=== PATIENT | female | born 1995 | race Hispanic/Latino ===

== ENCOUNTER 2021-05-02 09:12 | Outpatient (CLI) | payer SELFPAY ==
[2021-05-02 17:15] LABS: SARS-CoV-2 PCR by NAA Not Detected (NotDetected)
== END 2021-05-02 09:13 | disposition home or self-care (01) ==
LOC: CSHLAB 09:12
PROVIDERS: ATTEND Obstetrics & Gynecology
DX: Z20.822 Contact with and (suspected) exposure to COVID-19 (principal)
CPT/HCPCS: U0003; U0005

== ENCOUNTER 2021-08-08 13:51 | Outpatient (CLI) | payer OTHER ==
[2021-08-09 11:54] LABS: SARS-CoV-2 PCR by NAA Not Detected (NotDetected)
== END 2021-08-08 13:52 | disposition home or self-care (01) ==
LOC: CSHLAB 13:51
PROVIDERS: ATTEND Obstetrics & Gynecology
DX: Z01.812 Encounter for preprocedural laboratory examination (principal); Z20.822 Contact with and (suspected) exposure to COVID-19
CPT/HCPCS: U0003; U0005

== ENCOUNTER 2021-08-09 19:43 | Day surgery (SDC) | payer OTHER ==
[2021-08-09] MEDS ORDERED: hydrALAZINE 20 MG/ML VIAL SLOW IVP PRN (21:12)
== END 2021-08-09 21:40 | disposition home or self-care (01) ==
LOC: CSHLD/OP 19:43
PROVIDERS: ATTEND Obstetrics & Gynecology
DX: O47.1 False labor at or after 37 completed weeks of gestation (principal); O99.013 Anemia complicating pregnancy, third trimester; Z3A.39 39 weeks gestation of pregnancy; Z79.899 Other long term (current) drug therapy
CPT/HCPCS: 99282

== ENCOUNTER 2021-08-10 10:01 | Inpatient (IN) | payer MEDICAID, OTHER, SELFPAY ==
[~2021-08-10 10:01] MED LIST: Bupivacaine 0.25% HCL 30 ML VIAL ONE; Bupivacaine PF 0.5% 30 ML VIAL ONE
[2021-08-10] MEDS ORDERED: hydrALAZINE 20 MG/ML VIAL SLOW IVP PRN ×2 (10:20→14:22)
[2021-08-10] MEDS ORDERED: Morphine 10 MG/ML VIAL IM SCH (11:00)
[2021-08-10] MEDS: Lactated Ringer's 1,000 ML IV SCH ×2 (14:17→18:03)
[2021-08-10] MEDS ORDERED: Ibuprofen 800 MG TAB PO PRN (14:22)
[2021-08-10] MEDS ORDERED: Methylergonovine 0.2 MG/ML VIAL IM PRN (14:22)
[2021-08-10] MEDS ORDERED: Carboprost 250 MCG/ML AMP IM PRN (14:22)
[2021-08-10] MEDS ORDERED: Promethazine HCl 25 MG/ML VIAL IM PRN ×2 (14:22→18:13)
[2021-08-10] MEDS ORDERED: Misoprostol 200 MCG TAB PR PRN (14:22)
[2021-08-10] MEDS ORDERED: Lidocaine 1% (PF) 30 ML VIAL SC PRN (14:22)
[2021-08-10] MEDS ORDERED: Ondansetron PF 4 MG/2 ML Vial IVP PRN ×2 (14:22→18:13)
[2021-08-10 14:30] VITALS: BMI 35.2
[2021-08-10] MEDS ORDERED: NS w/ Oxytocin 30 units 500 ML IVPB SCH (14:30)
[2021-08-10] MEDS ORDERED: NS w/ Oxytocin 30 units 500 ML IV SCH (14:30)
[2021-08-10 14:56] LABS: Hemoglobin 15.5 g/dL (12.0-15.5); Mean Corpuscular HGB CONC 33.3 g/dL (32.0-36.0); Mean Corpuscular Hemoglobin 28.7 pg (27.0-33.0); Mean Corpuscular Volume 86.1 fl (81.6-98.3); Mean Platelet Volume 10.8 fl (7.4-10.4); Platelet Count 214 10x3/uL (150-450); RBC Distribution Width 18.3 % (11.5-14.5); Red Blood Cell (RBC) Count 5.41 10x6/uL (3.90-5.03); White Blood Cell (WBC) Count 9.5 10x3/uL (3.5-10.5)
[2021-08-10] MEDS ORDERED: Fentanyl 2 mcg/Bup 0.1% Cadd 100 ML ONE (15:17)
[2021-08-10 15:31] LABS: HIV (1/2) Antibody/Antigen Non-Reactive (NonReactive); HIV 1/2 INDEX 0.06 S/CO (<1.00); Syphilis Antibody Nonreactive (Nonreactive); Syphilis Antibody Index 0.05 S/CO (<1.00 Non-Reactive)
[2021-08-10 15:37] LABS: Hep B Surf Ag Non-Reactive S/CO (NonReactive)
[2021-08-10 15:38] LABS: HBSAg Index 0.16 S/CO (0-0.99)
[2021-08-10] MEDS ORDERED: Fentanyl 100 MCG/2 ML VIAL ONE (17:21)
[2021-08-10] MEDS ORDERED: Hydrocerin (Eucerin) Cream 120 gm Jar TOP PRN (18:13)
[2021-08-10] MEDS ORDERED: Acetaminophen 325 MG TAB PO PRN (18:13)
[2021-08-10] MEDS ORDERED: ePHEDrine Sulfate 50 MG/10 ML VIAL SLOW IVP PRN (18:13)
[2021-08-10] MEDS ORDERED: Naloxone HCl 0.4 mg/ml Vial IVP PRN ×2 (18:13)
[2021-08-10] MEDS ORDERED: diphenhydrAMINE 50 MG/ML VIAL IVP PRN (18:13)
[2021-08-10] MEDS ORDERED: Communication Order-Pharmacy FS SCH (18:15)
[2021-08-10] MEDS ORDERED: Fentanyl 2 mcg/Bupivacaine 0.1% Cassette 100 ML EPIDURAL SCH (18:15)
[2021-08-10] MEDS ORDERED: Lactated Ringer's 1,000 ML IV PRN (18:21)
[2021-08-11] MEDS: NS w/ Oxytocin 30 units 500 ML IV SCH ×2 (03:55→06:35)
[2021-08-11] MEDS ORDERED: hydrALAZINE 20 MG/ML VIAL SLOW IVP PRN (08:36)
[2021-08-11] MEDS ORDERED: Bisacodyl 10 MG SUPP PR PRN (08:36)
[2021-08-11] MEDS ORDERED: Boostrix 0.5 ML (Tdap) VIAL IM ONE (08:36)
[2021-08-11] MEDS ORDERED: Preparation H Ointment 28 GM TUBE PR PRN (08:36)
[2021-08-11] MEDS ORDERED: Lanolin Ointment 7 GM TUBE TOP PRN (08:36)
[2021-08-11] MEDS ORDERED: Promethazine HCl 25 MG/ML VIAL IM PRN (08:36)
[2021-08-11] MEDS ORDERED: Ondansetron PF 4 MG/2 ML Vial IVP PRN (08:36)
[2021-08-11] MEDS ORDERED: Benzocaine-Menthol 82.5 ML CAN TOP PRN (08:36)
[2021-08-11] MEDS ORDERED: diphenhydrAMINE 25 MG CAP PO PRN (08:36)
[2021-08-11] MEDS: Lactated Ringer's 1,000 ML IV SCH (09:25)
[2021-08-11] MEDS: Docusate Calcium (SURFAK) 240 MG CAP PO SCH (10:14)
[2021-08-11] MEDS: Prenatal Vitamin 1 TAB PO SCH (10:14)
[2021-08-11] MEDS: Ibuprofen 800 MG TAB PO SCH (14:22)
[2021-08-11] MEDS: Ferrous Sulfate 325 MG TAB PO SCH (16:31)
[2021-08-12] MEDS: Docusate Calcium (SURFAK) 240 MG CAP PO SCH ×3 (06:42→21:06)
[2021-08-12] MEDS: Ibuprofen 800 MG TAB PO SCH ×4 (06:42→21:06)
[2021-08-12] MEDS: Prenatal Vitamin 1 TAB PO SCH (08:30)
[2021-08-12] MEDS: Ferrous Sulfate 325 MG TAB PO SCH ×2 (08:31→15:57)
[2021-08-12] MEDS: Milk Of Magnesia 30 ML UDCUP PO PRN (10:49)
[2021-08-13] MEDS: Ibuprofen 800 MG TAB PO SCH (05:35)
[2021-08-13 07:45] VITALS: BP 117/70; TEMP 98.9
[2021-08-13] MEDS: Ferrous Sulfate 325 MG TAB PO SCH (08:09)
[2021-08-13] MEDS: Docusate Calcium (SURFAK) 240 MG CAP PO SCH (08:10)
[2021-08-13] MEDS: Prenatal Vitamin 1 TAB PO SCH (08:10)
[2021-08-13] MEDS: Milk Of Magnesia 30 ML UDCUP PO PRN (10:50)
== END 2021-08-13 13:50 | disposition home or self-care (01) | DRG 768 ==
LOC: CSHLD/OP 10:01 → CSHLD 14:20 → CSHPP 08-11 08:55
PROVIDERS: ADMIT Obstetrics & Gynecology; ATTEND Obstetrics & Gynecology
PROC: 10E0XZZ Delivery of Products of Conception, External Approach (ICD-10-PCS; principal; 2021-08-11)
PROC: 0DQR0ZZ Repair Anal Sphincter, Open Approach (ICD-10-PCS; 2021-08-11)
PROC: 10907ZC Drainage of Amniotic Fluid, Therapeutic from Products of Conception, Via Natural or Artificial Opening (ICD-10-PCS; 2021-08-11)
DX: O76 Abnormality in fetal heart rate and rhythm complicating labor and delivery (principal); Z37.0 Single live birth; O70.20 Third degree perineal laceration during delivery, unspecified; Z3A.39 39 weeks gestation of pregnancy; O99.02 Anemia complicating childbirth; D64.9 Anemia, unspecified
CPT/HCPCS: 36415; 51702; 85027; 86780; 86850; 86900; 86901; 87340; 87389; 99285; J2270; J2590; J7120; S0020

== ENCOUNTER 2023-12-01 18:00 | Inpatient (IN) | payer MEDICAID, OTHER ==
[~2023-12-01 18:00] MED LIST changes: -Bupivacaine PF 0.5% 30 ML VIAL ONE
[2023-12-01] MEDS ORDERED: hydrALAZINE 20 MG/ML VIAL SLOW IVP PRN (18:04)
[2023-12-01] MEDS ORDERED: Misoprostol 200 MCG TAB PR PRN (18:04)
[2023-12-01] MEDS ORDERED: Carboprost 250 MCG/ML AMP IM PRN (18:04)
[2023-12-01] MEDS ORDERED: Ondansetron PF 4 MG/2 ML Vial IVP PRN (18:04)
[2023-12-01] MEDS ORDERED: Lidocaine 1% (PF) 30 ML VIAL SC PRN (18:04)
[2023-12-01] MEDS ORDERED: Methylergonovine 0.2 MG/ML VIAL IM PRN (18:04)
[2023-12-01] MEDS ORDERED: fentaNYL 50 mcg/mL 1 mL Vial SLOW IVP PRN (18:04)
[2023-12-01] MEDS ORDERED: Acetaminophen 500 MG TAB PO PRN (18:04)
[2023-12-01] MEDS ORDERED: Tranexamic Acid 1,000 MG/10 ML VIAL IVP PRN (18:04)
[2023-12-01] MEDS ORDERED: Ibuprofen 800 MG TAB PO PRN (18:04)
[2023-12-01] MEDS ORDERED: Diphenoxylate HCl/Atropine Tablet PO PRN (18:04)
[2023-12-01] MEDS ORDERED: Promethazine HCl 25 MG/ML VIAL IM PRN (18:04)
[2023-12-01] MEDS ORDERED: Oxytocin 30 units/NS 500 ML 500 ML IV SCH (18:15)
[2023-12-01] MEDS: Lactated Ringer's 1,000 ML IV SCH (22:20)
[2023-12-01 22:51] VITALS: BMI 34.4
[2023-12-01 22:59] LABS: Hematocrit 36.9 % (34.9-44.5); Mean Corpuscular HGB CONC 32.5 g/dL (32.0-36.0); Mean Corpuscular Hemoglobin 25.4 pg (27.0-33.0); Mean Corpuscular Volume 78.2 fl (81.6-98.3); Mean Platelet Volume 10.5 fl (7.4-10.4); Platelet Count 304 10x3/uL (150-450); RBC Distribution Width 20.8 % (11.5-14.5); Red Blood Cell (RBC) Count 4.72 10x6/uL (3.90-5.03); White Blood Cell (WBC) Count 9.8 10x3/uL (3.5-10.5)
[2023-12-01] MEDS: Misoprostol 100 MCG TAB VAG SCH (23:05)
[2023-12-01 23:34] LABS: HBSAg Index 0.22 S/CO (0-0.99); Hep B Surf Ag - L&D Non-Reactive S/CO (NonReactive); Syphilis Antibody Nonreactive (Nonreactive); Syphilis Antibody Index 0.07 S/CO (<1.00 Non-Reactive)
[2023-12-02] MEDS: fentaNYL/Ropivacaine Epidural 100 ML ONE (14:35)
[2023-12-02] MEDS ORDERED: Naloxone HCl 0.4 mg/ml Vial IVP PRN ×2 (14:51)
[2023-12-02] MEDS ORDERED: Lactated Ringer's 500 ML IV PRN (14:51)
[2023-12-02] MEDS ORDERED: ePHEDrine Sulfate 50 MG/10 ML VIAL SLOW IVP PRN (14:51)
[2023-12-02] MEDS ORDERED: Moisturizing Cream (Eucerin) 113 GM JAR TOP PRN (14:51)
[2023-12-02] MEDS ORDERED: Ondansetron PF 4 MG/2 ML Vial IVP PRN ×2 (14:51→20:42)
[2023-12-02] MEDS ORDERED: Promethazine HCl 25 MG/ML VIAL IM PRN ×2 (14:51→20:42)
[2023-12-02] MEDS ORDERED: diphenhydrAMINE 50 MG/ML VIAL IVP PRN (14:51)
[2023-12-02] MEDS ORDERED: fentaNYL 2 mcg/Ropivacaine 0.2% Epidural 100 ML CADD EPIDURAL SCH (15:00)
[2023-12-02] MEDS ORDERED: Communication Order-Pharmacy FS SCH (15:00)
[2023-12-02] MEDS: Oxytocin 30 units/NS 500 ML 500 ML IV SCH (17:15)
[2023-12-02] MEDS ORDERED: diphenhydrAMINE 25 MG CAP PO PRN (20:42)
[2023-12-02] MEDS ORDERED: Benzocaine-Menthol 82.5 ML CAN TOP PRN (20:42)
[2023-12-02] MEDS ORDERED: Lanolin Ointment 7 GM TUBE TOP PRN (20:42)
[2023-12-02] MEDS ORDERED: Milk Of Magnesia 30 ML UDCUP PO PRN (20:42)
[2023-12-02] MEDS ORDERED: Boostrix 0.5 ML (Tdap) VIAL (>/=7 yrs of age) IM ONE (20:42)
[2023-12-02] MEDS ORDERED: hydrALAZINE 20 MG/ML VIAL SLOW IVP PRN (20:42)
[2023-12-02] MEDS ORDERED: Preparation H Ointment 28 GM TUBE PR PRN (20:42)
[2023-12-02] MEDS ORDERED: Bisacodyl 10 MG SUPP PR PRN (20:42)
[2023-12-02] MEDS ORDERED: Acetaminophen 325 MG TAB PO PRN (20:57)
[2023-12-02] MEDS ORDERED: Oxytocin 30 units/NS 500 ML 500 ML IV SCH (21:00)
[2023-12-02] MEDS: Ibuprofen 800 MG TAB PO SCH (21:50)
[2023-12-02] MEDS: Docusate 100 MG CAP PO SCH (21:50)
[2023-12-03] MEDS: Ferrous Sulfate 325 MG TAB PO SCH (07:22)
[2023-12-03] MEDS: Prenatal Vitamin 1 TAB PO SCH (08:22)
[2023-12-03] MEDS: Acetaminophen 325 MG TAB PO PRN (08:22)
[2023-12-03 11:43] VITALS: BP 100/60; TEMP 98.9
== END 2023-12-03 18:30 | disposition home or self-care (01) | DRG 807 ==
LOC: CSHLD 21:41 → CSHPP 12-02 20:32
PROVIDERS: ADMIT Family Medicine; ATTEND Family Medicine
PROC: 10E0XZZ Delivery of Products of Conception, External Approach (ICD-10-PCS; principal; 2023-12-02)
PROC: 0HQ9XZZ Repair Perineum Skin, External Approach (ICD-10-PCS; 2023-12-02)
PROC: 3E033VJ Introduction of Other Hormone into Peripheral Vein, Percutaneous Approach (ICD-10-PCS; 2023-12-02)
DX: O48.0 Post-term pregnancy (principal); Z37.0 Single live birth; Z3A.40 40 weeks gestation of pregnancy; O69.81X0 Labor and delivery complicated by cord around neck, without compression, not applicable or unspecified; O70.0 First degree perineal laceration during delivery
CPT/HCPCS: 85027; 86780; 86850; 86900; 86901; 87340; J0665; J2590; J7120

== ENCOUNTER 2025-08-20 08:28 | Inpatient (IN) | payer OTHER ==
[2025-08-21 20:02] VITALS: BMI 38.5
[2025-08-21] MEDS ORDERED: Ibuprofen 800 MG TAB PO PRN (21:32)
[2025-08-21] MEDS ORDERED: Methylergonovine 0.2 MG/ML VIAL IM PRN (21:32)
[2025-08-21] MEDS ORDERED: Tranexamic Acid 1,000 MG/10 ML VIAL IVP PRN (21:32)
[2025-08-21] MEDS ORDERED: Carboprost 250 MCG/ML AMP IM PRN (21:32)
[2025-08-21] MEDS ORDERED: Lidocaine 1% (PF) 30 ML VIAL SC PRN (21:32)
[2025-08-21] MEDS ORDERED: Acetaminophen 500 MG TAB PO PRN (21:32)
[2025-08-21] MEDS ORDERED: hydrALAZINE 20 MG/ML VIAL SLOW IVP PRN (21:32)
[2025-08-21] MEDS ORDERED: Ondansetron PF 4 MG/2 ML Vial IVP PRN (21:32)
[2025-08-21] MEDS ORDERED: HYDROcodone/Acetaminophen 5/325 mg Tablet PO PRN (21:32)
[2025-08-21] MEDS ORDERED: Diphenoxylate HCl/Atropine Tablet PO PRN (21:32)
[2025-08-21 22:10] LABS: Hematocrit 32.7 % (34.9-44.5); Hemoglobin 10.2 g/dL (12.0-15.5); Mean Corpuscular Hemoglobin 22.5 pg (27.0-33.0); Mean Corpuscular Volume 72.0 fL (81.6-98.3); Platelet Count 284 10x3/uL (150-450); Red Blood Cell (RBC) Count 4.54 10x6/uL (3.90-5.03); White Blood Cell (WBC) Count 9.79 10x3/uL (3.5-10.5)
[2025-08-21 22:46] LABS: Syphilis Antibody Index 0.06 S/CO (<1.00 Non-Reactive)
[2025-08-21 22:54] LABS: Hep B Surf Ag - L&D Non-Reactive S/CO (NonReactive)
[2025-08-22] MEDS: Oxytocin 30 units/NS 500 ML 500 ML IV SCH ×2 (09:30→14:45)
[2025-08-22] MEDS ORDERED: Ondansetron PF 4 MG/2 ML Vial IVP PRN ×2 (10:24→17:13)
[2025-08-22] MEDS ORDERED: diphenhydrAMINE 50 MG/ML VIAL IVP PRN (10:24)
[2025-08-22] MEDS ORDERED: Acetaminophen 325 MG TAB PO PRN (10:24)
[2025-08-22] MEDS ORDERED: Communication Order-Pharmacy FS SCH (10:30)
[2025-08-22] MEDS: fentaNYL 2 mcg/Ropivacaine 0.2% Epidural 100 ML CADD EPIDURAL SCH (10:49)
[2025-08-22] MEDS ORDERED: Milk Of Magnesia 30 ML UDCUP PO PRN (17:13)
[2025-08-22] MEDS ORDERED: Lanolin Ointment 7 GM TUBE TOP PRN (17:13)
[2025-08-22] MEDS ORDERED: diphenhydrAMINE 25 MG CAP PO PRN (17:13)
[2025-08-22] MEDS ORDERED: Bisacodyl 10 MG SUPP PR PRN (17:13)
[2025-08-22] MEDS ORDERED: hydrALAZINE 20 MG/ML VIAL SLOW IVP PRN (17:13)
[2025-08-22] MEDS: HYDROcodone/Acetaminophen 5/325 mg Tablet PO PRN (18:11)
[2025-08-22] MEDS: Ibuprofen 800 MG TAB PO SCH (18:11)
[2025-08-23] MEDS: Benzocaine-Menthol 82.5 ML CAN TOP PRN (00:57)
[2025-08-23] MEDS: Ferrous Sulfate 325 MG TAB PO SCH (07:54)
[2025-08-23] MEDS: fentaNYL/Ropivacaine Epidural 100 ML ONE (07:54)
[2025-08-23 12:08] VITALS: BP 87/54; TEMP 98
== END 2025-08-23 17:30 | disposition home or self-care (01) | DRG 807 ==
LOC: CSHLD 08-21 19:30 → CSHPED 08-22 16:00
PROVIDERS: ADMIT Family Medicine; ATTEND Family Medicine
PROC: 10E0XZZ Delivery of Products of Conception, External Approach (ICD-10-PCS; principal; 2025-08-22)
PROC: 0KQM0ZZ Repair Perineum Muscle, Open Approach (ICD-10-PCS; 2025-08-22)
PROC: 10907ZC Drainage of Amniotic Fluid, Therapeutic from Products of Conception, Via Natural or Artificial Opening (ICD-10-PCS; 2025-08-22)
DX: O48.0 Post-term pregnancy (principal); Z37.0 Single live birth; Z3A.40 40 weeks gestation of pregnancy; O70.1 Second degree perineal laceration during delivery
CPT/HCPCS: 51702; 85027; 86780; 86850; 86900; 86901; 87340; J2590; J7120